=== PATIENT | male | born 1960 | race Hispanic/Latino ===

== ENCOUNTER 2018-07-21 08:08 | Day surgery (SDC) | payer OTHER ==
[2018-07-20 16:40] VITALS: BP 151/88
[2018-07-20 16:59] LABS: CREATININE 0.9 mg/dL (0.5-1.5)
[2018-07-21] VITALS (15 sets, daily range): BP systolic 127–146; BP diastolic 74–87
[~2018-07-21] VITALS: Ht 175.3 cm; Wt 93.9 kg
[2018-07-21] MEDS: CEFTRIAXONE SODIUM 1 GM IVP SCH ×2 (08:00→11:20)
[~2018-07-21 08:08] MED LIST: AMLO5TAB9 PO; ATOR40TA69 PO; FENO145T37 PO; INSU100I26 SQ; METF-444 PO; VITAMIN B PO
[2018-07-21] MEDS ORDERED: SODIUM CHLORIDE 0.9% 1000ML 1,000 ML IV ONE (09:03)
--- NOTE | 2018-07-21 09:19 | NUR ---
VALUABLES: CLOTHING, MEDICATIONS, CELL PHONE AND WALLET GIVEN TO
[2018-07-21] MEDS ORDERED: MIDAZOLAM HCL 1 MG/ML 2ML VIAL ONE (11:10)
[2018-07-21] MEDS ORDERED: PROPOFOL 10 MG/ML 20ML VIAL IV ONE (11:10)
[2018-07-21] MEDS ORDERED: FENTANYL CITRATE PF 50 MCG/1 ML 2ML VIAL ONE ×2 (11:11→11:40)
[2018-07-21] MEDS ORDERED: EPHEDRINE SULFATE 50 MG/ML AMPULE ONE (11:32)
[2018-07-21] MEDS ORDERED: DEXAMETHASONE SOD PHOSPHATE 10MG/ML 1ML VIAL ONE (11:42)
[2018-07-21] MEDS ORDERED: ONDANSETRON HCL 4 MG/2 ML VIAL ONE (11:43)
[2018-07-21] MEDS ORDERED: MORPHINE SULFATE 2 MG/ML 1ML SYG ONE ×2 (12:09)
--- NOTE | 2018-07-21 13:00 | NUR ---
new pt received pt from [facility], s/p Transureteral incision bladder neck [address] , dressing to tip of penis noted dry and intact, vs stable on arrival , pt denied any pain or discomforts.
[2018-07-21] MEDS ORDERED: PHENAZOPYRIDINE HCL 200 MG TABLET PO SCH (13:15)
--- NOTE | 2018-07-21 13:45 | NUR ---
dc dc instructions given to pt / pt spouse with rx, instructed on olivares care pt stated " i had olivares catheter at home before , I am aware of the care". olivares leg bag applied, instructed on new med regimen and possible side effects of medications. To follow up with Dr. Gonzalez on 07/24/18 for olivares cath removal. pt / spouse verbalized understanding. piv removed, site asymtomatic, catheter intact. pt denies any pain or discomforts. patient will get dress then call nurse when ready to go home with family.
== END 2018-07-21 14:00 | disposition home or self-care (01) ==
LOC: DAH 08:08
PROVIDERS: ATTEND Urology
DX: N32.0 Bladder-neck obstruction (principal); R33.9 Retention of urine, unspecified; Z98.890 Other specified postprocedural states; E11.9 Type 2 diabetes mellitus without complications; I10 Essential (primary) hypertension; M54.32 Sciatica, left side; Z79.84 Long term (current) use of oral hypoglycemic drugs; Z79.899 Other long term (current) drug therapy
CPT/HCPCS: 36415; 52276; 80048; 82948; A4218; A4344; A4358; A4510; A4600; J0696; J1100; J2250; J2405; J2704; J3010 ×2; J3490; J7030 ×2

== ENCOUNTER 2019-04-13 09:32 | Day surgery (SDC) | payer OTHER ==
[2019-04-11 16:42] VITALS: BP 154/80
[2019-04-11 16:42] LABS: CREATININE 0.9 mg/dL (0.5-1.5); POTASSIUM 3.7 mmol/L (3.5-5.1)
[2019-04-12] MEDS: CEFTRIAXONE SODIUM 1 GM IVP SCH (07:15)
[~2019-04-13] VITALS: Ht 177.8 cm; Wt 95.8 kg
[2019-04-13] VITALS (16 sets, daily range): BP systolic 122–155; BP diastolic 76–98
[~2019-04-13 09:32] MED LIST changes: -VITAMIN B PO
[2019-04-13] MEDS: CEFTRIAXONE SODIUM 1 GM IVP SCH (11:10)
[2019-04-13] MEDS ORDERED: DEXAMETHASONE SOD PHOSPHATE 10MG/ML 1ML VIAL ONE (11:12)
[2019-04-13] MEDS ORDERED: LIDOCAINE PF 2% 5ML ABBOJECT ONE (11:12)
[2019-04-13] MEDS ORDERED: NEOSTIGMINE 5MG/5ML SYR IV ONE (11:12)
[2019-04-13] MEDS ORDERED: MIDAZOLAM HCL 1 MG/ML 2ML VIAL ONE (11:12)
[2019-04-13] MEDS ORDERED: SUCCINYLCHOLINE 200MG/10ML SYR ONE (11:12)
[2019-04-13] MEDS ORDERED: ONDANSETRON HCL 4 MG/2 ML VIAL ONE (11:12)
[2019-04-13] MEDS ORDERED: PROPOFOL 10 MG/ML 20ML VIAL IV ONE (11:12)
[2019-04-13] MEDS ORDERED: ROCURONIUM 10MG/1ML SYR 10 MG/ML ML ONE (11:12)
[2019-04-13] MEDS ORDERED: GLYCOPYRROLATE 1 MG/5 ML SYRINGE ONE (11:12)
[2019-04-13] MEDS ORDERED: FENTANYL CITRATE PF 50 MCG/1 ML 2ML VIAL ONE ×2 (11:12→11:31)
[2019-04-13] MEDS ORDERED: MEPERIDINE-PF 25 MG/ML SYG ONE (11:36)
--- NOTE | 2019-04-13 13:30 | NUR ---
POST-PROCEDURE RECEIVED FROM RR S/P JONATHANI BLADDER NECK CONTRACTURE VIA STRETCHER. AWAKE IN NO ACUTE DISTRESS. DENIES PAIN. CONNECTED TO CONTINUOUS CARDIOPULMONARY MONITORING. 19F F/C TO BSD DRAINING CLEAR YELLOW URINE. 4X4 DRESSING TO PENIS CLEAN, DRY, AND INTACT. SIDE RAILS UP X2, BED IN LOWEST POSITION, AND CALL LIGHT W/IN REACH.
[2019-04-13] MEDS ORDERED: PHENAZOPYRIDINE HCL 200 MG TABLET ONE (13:35)
--- NOTE | 2019-04-13 13:58 | NUR ---
DISCHARGE INSTRUCTIONS DAY PT DISCHARGE INSTRUCTION SHEET, MED REC, AND PT SUMMARY REVIEWED WITH PT AND . BOTH VERBALIZED UNDERSTANDING. OPPORTUNITY GIVEN TO ASK QUESTIONS. QUESTIONS ADDRESSED.
--- NOTE | 2019-04-13 14:00 | NUR ---
EDUCATION PER PT " I KNOW HOW TO CHANGE THE BAGS. I HAD THIS PROCEDURE 6 MONTHS AGO". REEDUCATED ON CHANGING LEG BAG TO TAPIA BAG AND IMPORTANCE OF KEEPING BAG BELOW BLADDER. VERBALIZED UNDERSTANDING.
--- NOTE | 2019-04-13 14:13 | NUR ---
ACTIVITY UP TO CHAIR/GAIT STEADY/TOLERATED W/O COMPLICATIONS.
--- NOTE | 2019-04-13 14:20 | NUR ---
DISCHARGE DISCHARGED VIA W/C. AWAKE IN NO ACUTE DISTRESS.
== END 2019-04-13 14:20 | disposition home or self-care (01) ==
LOC: DAH 09:32
PROVIDERS: ATTEND Urology
DX: N32.0 Bladder-neck obstruction (principal); E11.9 Type 2 diabetes mellitus without complications; I10 Essential (primary) hypertension; Z79.4 Long term (current) use of insulin; Z79.899 Other long term (current) drug therapy
CPT/HCPCS: 36415; 52276; 80048; 82948 ×2; A4215; A4221; A4222; A4223; A4344; A4354; A4358; A4600; A4663; A5113; A6260; J0330; J0696; J1100; J2001; J2175; J2250; J2405; J2704; J2710; J3010 ×2; J3490; J7030

== ENCOUNTER 2020-03-19 21:53 | Emergency (ER) | payer OTHER ==
[~2020-03-19 21:53] MED LIST changes: +FENO145T26 PO; -FENO145T37 PO
[2020-03-19 23:15] LABS: APPEARANCE,URINE Clear (CLEAR); BILIRUBIN,URINE Negative (NEGATIVE); COLOR,URINE Yellow (YELLOW); GLUCOSE, URINE (UA) >=1000 mg/dL (NEGATIVE); KETONES,URINE Negative (NEGATIVE); LEUKOCYTE ESTERASE ,URINE Small (NEGATIVE); NITRATE,URINE Negative (NEGATIVE); OCCULT BLOOD,URINE Moderate (NEGATIVE); PROTEIN,URINE Trace mg/dL (NEGATIVE); UROBILINOGEN,URINE 0.2 mg/dL (0.2-1.0)
[2020-03-20 00:02] LABS: BACTERIA,URINE Few /HPF (None Seen); SQUAMOUS EPITHELIAL CELL,UR 0-2 /HPF (0-2)
== END 2020-03-19 23:26 | disposition home or self-care (01) ==
LOC: EDH 21:53
DX: R33.9 Retention of urine, unspecified (principal); Z46.6 Encounter for fitting and adjustment of urinary device
CPT/HCPCS: 51702; 81001; 87088

== ENCOUNTER → 2023-03-17 | Outpatient (CLI) | payer OTHER ==
[~2023-03-17] MED LIST changes: +AMLO-257 PO; -AMLO5TAB9 PO
[2023-03-17 12:28] LABS: CHOLESTEROL 199 mg/dL (<200); LDL DIRECT 127 mg/dL (0-99); TRIGLYCERIDES 48 mg/dL (30-200)
[2023-03-17 13:13] LABS: HEMOGLOBIN A1C 8.9 % (4.0-6.0)
[2023-03-17 14:03] LABS: HDL CHOLESTEROL 67 mg/dL (29-71)
== END | disposition home or self-care (01) ==
LOC: LAB 10:14
PROVIDERS: ATTEND Internal Medicine Cardiovascular Disease
DX: I10 Essential (primary) hypertension (principal); E11.59 Type 2 diabetes mellitus with other circulatory complications; I73.9 Peripheral vascular disease, unspecified
CPT/HCPCS: 36415; 80061; 83036